=== PATIENT | female | born 1960 | race Caucasian/White ===

== ENCOUNTER 2019-09-20 13:21 | Emergency (ER) | payer OTHER ==
[~2019-09-20] VITALS: Ht 157.5 cm; Wt 74.8 kg
[~2019-09-20 13:21] MED LIST: CHLO25 PO; DIPH50 PO; FAMO40 PO; LEVSOD100 PO; LEVSOD88 PO; MEDR5 PO; MILK THISTLE140 MG PO
[2019-09-20 14:09] LABS: BASOPHILS ABSOLUTE AUTO 0.04 K/mm3 (0.00-0.23); BASOPHILS PERCENT AUTO 0 % (0-2); EOSINOPHILS ABSOLUTE AUTO 0.19 K/mm3 (0.00-0.68); EOSINOPHILS PERCENT AUTO 2 % (0-6); Hematocrit 43.7 % (33.0-51.0); Hemoglobin 14.7 g/dL (11.5-16.0); IMMATURE GRAN ABSOLUTE AUTO 0.01 K/mm3 (0.00-0.10); IMMATURE GRAN PERCENT AUTO 0 % (0-1); LYMPHOCYTES ABSOLUTE AUTO 2.72 K/mm3 (0.84-5.20); LYMPHOCYTES PERCENT AUTO 29 % (21-46); MONOCYTES ABSOLUTE AUTO 0.55 K/mm3 (0.16-1.47); MONOCYTES PERCENT AUTO 6 % (4-13); Mean Corpuscular HGB Conc 33.6 g/dL (31.5-36.5); Mean Corpuscular Volume 89 fL (80-100); Mean Platelet Volume 10.2 fL (9.1-12.4); NEUTROPHILS ABSOLUTE AUTO 5.76 K/mm3 (1.96-9.15); NEUTROPHILS PERCENT AUTO 62 % (41-73); Platelet Count 292 K/mm3 (150-400); RDW Coefficient Variation 12.8 % (11.7-14.2); RDW Standard Deviation 42.1 fL (35.1-46.3); White Blood Cell Count 9.27 K/mm3 (4.00-11.30)
[2019-09-20 14:32] LABS: Alanine Aminotransfer (ALT/SGP 86 U/L (12-78); Albumin, Blood 3.6 g/dL (3.4-5.0); Alk Phos 96 U/L (50-136); Anion Gap 6 mmol/L (6-16); Aspartate Aminotrans (AST/SGOT 50 U/L (12-37); Bilirubin, Total 0.4 mg/dL (0.1-1.0); Blood Urea Nitrogen 12 mg/dL (8-24); Bun/Creatinine Ratio 21.1 (12.0-20.0); CO2, Blood 28 mmol/L (21-32); Calcium, Blood 8.9 mg/dL (8.5-10.1); Chloride, Blood 106 mmol/L (98-108); Creatinine, Blood 0.57 mg/dL (0.40-1.00); Globulin, Blood 3.7 g/dL (2.2-4.0); Glomerular Filtration Rate >60 (60-); Glucose, Blood 129 mg/dL (70-99); Potassium, Blood 3.6 mmol/L (3.5-5.5); Sodium, Blood 140 mmol/L (136-145); Total Protein, Blood 7.3 g/dL (6.4-8.2); Troponin I <0.015 ng/mL (0.000-0.040)
== END 2019-09-20 15:45 | disposition home or self-care (01) ==
LOC: ER 13:21
PROVIDERS: Physician Assistant
DX: R07.9 Chest pain, unspecified (principal); M54.6 Pain in thoracic spine; J44.9 Chronic obstructive pulmonary disease, unspecified; E03.9 Hypothyroidism, unspecified; Z79.899 Other long term (current) drug therapy; Z86.19 Personal history of other infectious and parasitic diseases; F17.200 Nicotine dependence, unspecified, uncomplicated
CPT/HCPCS: 36415; 71046; 80053; 84484; 85025; 93005; 93010; 99284-25

== ENCOUNTER → 2020-09-11 | Outpatient (CLI) | payer OTHER ==
[~2020-09-11] MED LIST changes: +SERT25 PO; +Selenomax200 MCG PO
== END | disposition home or self-care (01) ==
LOC: LAB SHORT 08:06 → PLD 08:06
DX: D22.39 Melanocytic nevi of other parts of face (principal)
CPT/HCPCS: 88305

== ENCOUNTER 2021-03-30 01:06 | Day surgery (SDC) | payer OTHER ==
[~2021-03-30] VITALS: Wt 76.4 kg
[~2021-03-30 01:06] MED LIST changes: -SERT25 PO; -Selenomax200 MCG PO
[2021-03-30] MEDS ORDERED: SERT25 PO (11:49)
[2021-03-30] MEDS ORDERED: Selenomax200 MCG PO (11:49)
== END 2021-03-30 10:10 | disposition home or self-care (01) ==
LOC: ATC 01:06
DX: E05.00 Thyrotoxicosis with diffuse goiter without thyrotoxic crisis or storm (principal)
CPT/HCPCS: 96365; J2930

== ENCOUNTER 2021-04-06 04:43 | Day surgery (SDC) | payer OTHER ==
[~2021-04-06 04:43] MED LIST changes: +SERT25 PO; +Selenomax200 MCG PO
== END 2021-04-06 14:51 | disposition home or self-care (01) ==
LOC: ATC 04:43
DX: E05.00 Thyrotoxicosis with diffuse goiter without thyrotoxic crisis or storm (principal); E89.0 Postprocedural hypothyroidism; F41.8 Other specified anxiety disorders; F17.210 Nicotine dependence, cigarettes, uncomplicated
CPT/HCPCS: 96365; J2930

== ENCOUNTER 2021-04-13 00:22 | Day surgery (SDC) | payer OTHER | END 2021-04-13 10:30 | disposition home or self-care (01) | LOC: ATC 00:22 | DX: E05.00 Thyrotoxicosis with diffuse goiter without thyrotoxic crisis or storm (principal) | CPT/HCPCS: 96365; J2930 ==

== ENCOUNTER 2021-04-20 01:09 | Day surgery (SDC) | payer OTHER | END 2021-04-20 10:40 | disposition home or self-care (01) | LOC: ATC 01:09 | DX: E05.00 Thyrotoxicosis with diffuse goiter without thyrotoxic crisis or storm (principal); F41.8 Other specified anxiety disorders; E89.0 Postprocedural hypothyroidism; F17.210 Nicotine dependence, cigarettes, uncomplicated | CPT/HCPCS: J2930 ==

== ENCOUNTER 2021-05-11 00:12 | Day surgery (SDC) | payer OTHER | END 2021-05-11 10:47 | disposition home or self-care (01) | LOC: ATC 00:12 | DX: E05.00 Thyrotoxicosis with diffuse goiter without thyrotoxic crisis or storm (principal); F17.210 Nicotine dependence, cigarettes, uncomplicated; E89.0 Postprocedural hypothyroidism; F41.8 Other specified anxiety disorders | CPT/HCPCS: 96365; J2930 ==

== ENCOUNTER 2021-05-18 01:04 | Day surgery (SDC) | payer OTHER | END 2021-05-18 10:30 | disposition home or self-care (01) | LOC: ATC 01:04 | DX: E05.00 Thyrotoxicosis with diffuse goiter without thyrotoxic crisis or storm (principal); F17.210 Nicotine dependence, cigarettes, uncomplicated | CPT/HCPCS: 96365; J2930 ==

== ENCOUNTER 2021-05-25 00:27 | Day surgery (SDC) | payer OTHER | END 2021-05-25 10:16 | disposition home or self-care (01) | LOC: ATC 00:27 | DX: E05.00 Thyrotoxicosis with diffuse goiter without thyrotoxic crisis or storm (principal); E89.0 Postprocedural hypothyroidism; F17.200 Nicotine dependence, unspecified, uncomplicated | CPT/HCPCS: 36415; 80053; 84439; 84443; 96365; J2930 ==

== ENCOUNTER 2021-06-01 02:10 | Day surgery (SDC) | payer OTHER | END 2021-06-01 10:14 | disposition home or self-care (01) | LOC: ATC 02:10 | DX: E05.00 Thyrotoxicosis with diffuse goiter without thyrotoxic crisis or storm (principal); F17.210 Nicotine dependence, cigarettes, uncomplicated; E89.0 Postprocedural hypothyroidism | CPT/HCPCS: 96365; J2930 ==

== ENCOUNTER 2021-06-08 00:23 | Day surgery (SDC) | payer OTHER | END 2021-06-08 10:19 | disposition home or self-care (01) | LOC: ATC 00:23 | DX: E05.00 Thyrotoxicosis with diffuse goiter without thyrotoxic crisis or storm (principal) | CPT/HCPCS: 96365; J2930 ==

== ENCOUNTER 2021-06-15 01:03 | Day surgery (SDC) | payer OTHER | END 2021-06-15 10:02 | disposition home or self-care (01) | LOC: ATC 01:03 | DX: E05.00 Thyrotoxicosis with diffuse goiter without thyrotoxic crisis or storm (principal) | CPT/HCPCS: J2930 ==

== ENCOUNTER 2021-12-27 10:12 | Day surgery (SDC) | payer OTHER ==
[~2021-12-27] VITALS: Ht 165.1 cm; Wt 77.0 kg
[~2021-12-27 10:12] MED LIST changes: +EUTHYROX88 MCG PO
--- NOTE | 2021-12-27 10:40 | NUR ---
12/27/21 1040 JUANITA RODRIGUEZ TETRACAINE DROP INSTILLED AT 1036 PLEDGETT INSERTED AT 1040
== END 2021-12-27 12:03 | disposition home or self-care (01) ==
LOC: ORSCSDS 10:12
PROVIDERS: Ophthalmology
PROC: 08RJ3JZ Replacement of Right Lens with Synthetic Substitute, Percutaneous Approach (ICD-10-PCS; principal; 2021-12-27 11:30)
DX: H25.13 Age-related nuclear cataract, bilateral (principal); E05.00 Thyrotoxicosis with diffuse goiter without thyrotoxic crisis or storm; Z87.891 Personal history of nicotine dependence; Z79.899 Other long term (current) drug therapy
CPT/HCPCS: J2001; J2250; J3010; J3301; J7040; V2632

== ENCOUNTER → 2022-07-17 | Outpatient (CLI) | payer OTHER ==
[2022-07-23 16:10] LABS: HPV 16 Negative (Negative); HPV 18 Negative (Negative); HPV OTHER HR TYPES Negative (Negative)
== END | disposition home or self-care (01) ==
LOC: LAB 12:00 → LAB SHORT 12:00
PROVIDERS: Nurse Practitioner Family
DX: Z11.51 Encounter for screening for human papillomavirus (HPV) (principal)
CPT/HCPCS: 87624; G0123

== ENCOUNTER 2022-08-14 07:09 | Day surgery (SDC) | payer OTHER ==
[~2022-08-14] VITALS: Ht 165.1 cm; Wt 67.3 kg
[2022-08-14] MEDS ORDERED: SERT50 (08:05)
[2022-08-14] MEDS ORDERED: Selenomax200 MCG (08:05)
== END 2022-08-14 09:35 | disposition home or self-care (01) ==
LOC: ORSCSDS 07:09
PROVIDERS: Internal Medicine Gastroenterology
PROC: 0DBN8ZX Excision of Sigmoid Colon, Via Natural or Artificial Opening Endoscopic, Diagnostic (ICD-10-PCS; principal; 2022-08-14 08:30)
PROC: 0DBK8ZX Excision of Ascending Colon, Via Natural or Artificial Opening Endoscopic, Diagnostic (ICD-10-PCS; principal; 2022-08-14 08:30)
DX: Z12.11 Encounter for screening for malignant neoplasm of colon (principal); Z86.010 Personal history of colon polyps; D12.2 Benign neoplasm of ascending colon; K63.5 Polyp of colon; K64.4 Residual hemorrhoidal skin tags; K57.50 Diverticulosis of both small and large intestine without perforation or abscess without bleeding; E05.00 Thyrotoxicosis with diffuse goiter without thyrotoxic crisis or storm; B18.2 Chronic viral hepatitis C; F17.210 Nicotine dependence, cigarettes, uncomplicated; Z79.899 Other long term (current) drug therapy
CPT/HCPCS: 88305; J2704; J7120

== ENCOUNTER 2025-09-14 06:59 | Day surgery (SDC) | payer OTHER ==
[~2025-09-14] VITALS: Ht 165.1 cm; Wt 79.4 kg
[~2025-09-14 06:59] MED LIST changes: +SERT50; +Selenomax200 MCG
[2025-09-14] MEDS ORDERED: BUPR150ER (07:40)
[2025-09-14] MEDS ORDERED: ATOR40TA (07:40)
[2025-09-14 10:02] VITALS: BP 121/87
== END 2025-09-14 10:01 | disposition home or self-care (01) ==
LOC: ORSCSDS 06:59
PROVIDERS: Internal Medicine Gastroenterology
PROC: 0DBL8ZX Excision of Transverse Colon, Via Natural or Artificial Opening Endoscopic, Diagnostic (ICD-10-PCS; principal; 2025-09-14 08:45)
PROC: 0DBN8ZX Excision of Sigmoid Colon, Via Natural or Artificial Opening Endoscopic, Diagnostic (ICD-10-PCS; principal; 2025-09-14 08:45)
PROC: 0DBK8ZX Excision of Ascending Colon, Via Natural or Artificial Opening Endoscopic, Diagnostic (ICD-10-PCS; principal; 2025-09-14 08:45)
DX: Z12.11 Encounter for screening for malignant neoplasm of colon (principal); D12.2 Benign neoplasm of ascending colon; D12.3 Benign neoplasm of transverse colon; K63.5 Polyp of colon; K57.30 Diverticulosis of large intestine without perforation or abscess without bleeding; K64.4 Residual hemorrhoidal skin tags; Z86.0101 Personal history of adenomatous and serrated colon polyps; E78.2 Mixed hyperlipidemia; E89.0 Postprocedural hypothyroidism; F41.8 Other specified anxiety disorders; Z79.899 Other long term (current) drug therapy
CPT/HCPCS: 88305; J2704; J7120